=== PATIENT | female | born 1945 | race Hispanic/Latino ===

== ENCOUNTER 2018-09-01 10:03 | Emergency (ER) | payer MEDICARE ==
[~2018-09-01] VITALS: Ht 152.4 cm; Wt 69.9 kg
[~2018-09-01 10:03] MED LIST: ASA81 MG PO; Z.0.LOSARTAN POTASS5 PO; Z.0.NEXIUM40 MG PO; Z.0.SIMVASTATIN40 MG PO; Z.0.VITAMIN D50000 U PO
--- OUTSIDE RECORDS SUMMARY | 2018-09-01 10:07 | XMS REPORT | Summary of Care ---
Author Author [facility] [place] Organization [facility] [place] Address Unknown Phone Unavailable Encounter HQ Chitontr_bess(FIN) [id number] Date(s): 12/21/15 - 12/21/15 [facility] [place] [address] [phone] [phone] Discharge Disposition: Home or Self Care Attending Physician: Cosme Clarke MD Vital Signs No data available for this section Problem List No data available for this section Allergies, Adverse Reactions, Alerts Substance Reaction Severity Status NKDA Active Medications No data available for this section Results No data available for this section Immunizations No data available for this section Procedures No data available for this section Social History No data available for this section Assessment and Plan No data available for this section
--- OUTSIDE RECORDS SUMMARY | 2018-09-01 10:07 | XMS REPORT | Summary of Care ---
Author Organization Unknown Address Unknown Phone Unavailable Encounter HQ Encntr_alidiane(FIN) [id number] Date(s): 05/26/14 - 05/26/14 [facility] Outpatient Imaging - [address] [place] [address]- [facility] [phone] Discharge Disposition: Home Physician Attending: Julián Weinstein MD Vital Signs No data available for [...]
--- OUTSIDE RECORDS SUMMARY | 2018-09-01 10:07 | XMS REPORT | Summary of Care ---
Author Author [facility] - [place] Organization [facility] [place] Address Unknown Phone Unavailable Encounter HQ Chitontr_bess(FIN) [id number] Date(s): 04/10/16 - 04/10/16 [facility] Out[facility] - [place] [address] [address]- [phone] Discharge Disposition: Home or Self Care Attending [...]
--- OUTSIDE RECORDS SUMMARY | 2018-09-01 10:07 | XMS REPORT | Summary of Care ---
Author Author [facility] [place] Organization [facility] [place] Address Unknown Phone Unavailable Encounter HQ Encntr_alias(FIN) [id number] Date(s): 07/28/18 - 07/28/18 [facility] [place] [address] [phone] Discharge Disposition: Home or Self Care Attending Physician: Cosme Clarke MD Referring Physician: Cosme Clarke MD Vital Signs No data available for this section Problem List No data available for this section Allergies, Adverse Reactions, Alerts No Known Medication Allergies Medications No data available for this section Results No data available for this section Immunizations No data available for this section Procedures No data available for this section Social History No data available for this section Assessment and Plan No data available for this section
--- OUTSIDE RECORDS SUMMARY | 2018-09-01 10:07 | XMS REPORT | Summary of Care ---
Author Organization Unknown Address Unknown Phone Unavailable Encounter HQ Encntr_alias(FIN) [id number] Date(s): 08/14/14 - 08/14/14 [facility] Outpatient Imaging - [address] [place] [address]- [facility] [phone] Discharge Disposition: Home Physician Attending: Julián Weinstein [...]
--- OUTSIDE RECORDS SUMMARY | 2018-09-01 10:07 | XMS REPORT | Summary of Care ---
Author Organization Unknown Address Unknown Phone Unavailable Encounter HQ Encntr_alias(FIN) [id number] Date(s): 06/07/13 - 06/07/13 [facility] Outpatient Imaging - [address] [address]- [place] Discharge Disposition: Home Physician Attending: Julián Weinstein Reason for Visit V76.12 - SCREEN MAMMOGRA Problem List No data available for this section Allergies, Adverse Reactions, Alerts Substance Reaction Severity Status NKDA Active Medications No data available for this section Medications Administered During Your Visit No data available for this section Immunizations No data available for this section
--- OUTSIDE RECORDS SUMMARY | 2018-09-01 10:07 | XMS REPORT ---
Author [facility] Address Unknown Phone Unavailable Care Team Providers Care Rn Intern Name Role Phone Marta ALLEN Unavailable Unavailable Payers Payer Name Policy Type Policy Number Effective Date Expiration Date Problems This patient has no known problems. Allergies, Adverse Reactions, Alerts Allergy Name Allergy Type Status Severity Reaction(s) Onset Date Inactive Date Treating Clinician Comments No Known Allergies DA Active U 2015-07-31 00:00:00 Medications This patient has no known medications. Results Test Description Test Time Test Comments Text Results Atomic Results Result Comments [facility] 2017-11-12 12:25:00 RUN DATE: 11/12/17 [facility] PAGE 1 RUN TIME: 1225 Specimen Inquiry RUN USER: INTERFACE PATIENT: DANYELL BELTRAN LOC: NICK Srinivasan #: [id number] AGE/SX: 71/F ROOM: [facility] RE11/09/17REG DR: Jacky Ceja MD : 43 BED: A DIS: 11/11/17 STATUS: DIS IN TLOC: SPEC #: [id number] RECD: 11/11/17 STATUS: MARIELENA LARKIN #: [id number] RAUL: 11/10/17- SUBM DR: Glendy Antunez MD ENTERED: 11/11/17-1035 SP TYPE: STOMACH OTHR DR: Sohail Elizabeth MD, Abiel MDORDERED: GROSS COPIES TO: Sohail Elizabeth MD [address] [place] [address] [place] Cosme sheehan MD [address] [place] [address] Glendy Antunez MD [address] [place], [place] [id number] PROCEDURES: GROSS (11/12/17-1223) TISSUES: 1. DUODENUM, NOS - BX 2. ANTRAL BIOPSY - H-PYLORI 3. BODY BIOPSY OF STOMACH - COLD BX 4. GASTRIC ULCER - COLD POLYP 5. COLON, NOS - RANDOM COLD BX CLINICAL HISTORY COLLECTION DATE: 11/10/17 ABDOMINAL PAIN, NAUSEA, VOMITING POST-OP DIAGNOSIS: GASTRITIS, HIATAL HERNIA, GASTRIC POLYP, HEMORRHOIDS FINAL DIAGNOSIS Small intestine, duodenum, cold biopsy: SMALL INTESTINAL MUCOSA, NO PATHOLOGIC ALTERATIONS Stomach, antrum, cold biopsy: CHRONIC GASTRITIS WITH INTESTINAL METAPLASIA CONTROLLED GIEMSA STAIN NEGATIVE FOR HELICOBACTER ORGANISMS NEGATIVE FOR DYSPLASIA CONTINUED ON NEXT PAGE R UN DATE: 11/12/17 [facility] PAGE 2 RUN TIME: 1225 Specimen Inquiry RUN USER: INTERFACE SPEC #: [id number] PATIENT: DANYELL BELTRAN #[id number] (Continued) FINAL DIAGNOSIS (Continued) NEGATIVE FOR MALIGNANCY Stomach, body, cold biopsy: SEVERE CHRONIC GASTRITIS WITH INTESTINAL METAPLASIA CONTROLLED GIEMSA STAIN NEGATIVE FOR HELICOBACTER ORGANISMS NEGATIVE FOR DYSPLASIA NEGATIVE FOR MALIGNANCY Gastric polyp, cold biopsy: CONSISTENT WITH HYPERPLASTIC POLYP WITH CHRONIC INFLAMMATION CONTROLLED GIEMSA STAIN NEGATIVE FOR HELICOBACTER ORGANISMS NEGATIVE FOR DYSPLASIA NEGATIVE FOR MALIGNANCY Random colon, cold biopsy: COLONIC MUCOSA WITH EDEMATOUS CHANGES, FEW SCATTERED PIGMENT- LADEN MACROPHAGES IN THE LAMINA PROPRIA, AND FEW SCATTERED LYMPHOID AGGREGATES NEGATIVE FOR ACUTE COLITIS NEGATIVE FOR MICROSCOPIC COLITIS NEGATIVE FOR MALIGNANCY BETTY/sm D ([phone], ([phone] MACROSCOPIC The first specimen is received in formalin, labeled with the patient's name, identified as "duodenum cold bx", and consists of mendes biopsy tissue measuring 0.3 cm in aggregate, submitted as (1). The second specimen is received in formalin, labeled with the patient's name, identified as "antrum cold bx", and consists of mendes biopsy tissue measuring 0.35 cm in aggregate, submitted as (2) for H E and Giemsa stains. The third specimen is received in formalin, labeled with the patient's name, identified as "body of stomach cold bx", and consists of mendes biopsy tissue measuring 0.35 cm in aggregate, submitted as (3) for H E and Giemsa stains. The fourth specimen is received in formalin, labeled with the patient's name, identified as "gastric polyp cold bx", and consists of mendes biopsy tissue measuring 0.35 cm in aggregate, submitted as (4). The fifth specimen is received in formalin, labeled with the patient's name, identified as "random colon cold bx", and consists of mendes biopsy tissue measuring 0.35 cm in aggregate, submitted as (5). GROSS PERFORMED AT [facility] CONTINUED ON NEXT PAGE RUN DATE: 11/12/17 [facility] PAGE 3 RUN TIME: 1225 Specimen Inquiry RUN USER: INTERFACE SPEC #: [id number] PATIENT: DANYELL BELTRAN #[id number] (Continued) MACROSCOPIC (Continued) [facility] [address] [place] [phone] (p)[phone] MICROSCOPIC MICROSCOPIC PERFORMED AT [facility] All of the stains, including any controls performed, stain appropriately. [facility] [address] [place] [address] (p)[phone] PERFORMING SITE Diagnosis performed at: [facility], [place] [address] Signed SIGNATURE ON FILE Tete Marshall 11/12/[address] ABDOMEN/PELVIS [address] [address] Patient Name: DANYELL BELTRAN MR #: [id number] : 1945 Age/Sex: 70/F Req #: [id number] Adm Physician: Ordered by: STEPH ALLEN MD Report #: [id number] Location: ER Room/Bed: Procedure: [id number] CT/CT ABDOMEN/PELVIS W Exam Date: 11/23/16 Exam Time: 0345 REPORT STATUS: Signed EXAM: CT ABDOMEN/PELVIS W DATE: 11/23/2016 2:05 AM INDICATION: Abdominal pain COMPARISON: None TECHNIQUE: The abdomen and pelvis were scanned using a multidetector helical scanner. Coronal and sagittal reformations were obtained. Routine protocol performed. IV Contrast: 100 ml Isovue 370 FINDINGS: LOWER THORAX: Mild bibasilar atelectasis/scarring LIVER/BILIARY: No masses. No ductal dilatation. GA LLBLADDER/SPLEEN/PANCREAS: Cholecystectomy. Otherwise unremarkable ADRENALS: No nodules KIDNEYS: Symmetric perfusion. No enhancing masses. Mild bilateral hydroureteronephrosis likely related to distended bladder. GI TRACT: Small hiatal hernia. No evidence of obstruction or bowel wall thickening. Scattered diverticuli without acute inflammatory change. Normal appendix. VESSELS: Mild atherosclerotic changes PERITONEUM/RETROPERITONEUM: No free air or fluid LYMPH NODES: No lymphadenopathy REPRODUCTIVE ORGANS/BLADDER: Distended bladder. Status post hysterectomy SOFT TISSUES: Small fat-containing umbilical and infraumbilical hernias BONES: Bilateral L5 pars defects with grade 1 anterolisthesis of L5 on S1. IMPRESSION: No acute abnormality. Signed by: Dr Nikos Mueller MD on 11/23/2016 4:44 AM Dictated By: NIKOS MUELLER MD 3 Transcribed By: LEV on 11/23/16443 COPY TO: STEPH ALLEN MD
--- OUTSIDE RECORDS SUMMARY | 2018-09-01 10:07 | XMS REPORT | CCD ---
Author Author Auto Generated Organization [facility] Outpatient Imaging - [place] Address Unknown Phone Unavailable Care Team Providers Care Press Puller Name Role Phone Cosme Clarke CP Allergies, Adverse Reactions, Alerts Substance Reaction Status NKDA Active
--- OUTSIDE RECORDS SUMMARY | 2018-09-01 10:07 | XMS REPORT | Summary of Care ---
Author Organization Unknown Address Unknown Phone Unavailable Encounter HQ Johnyr_bess([facility]) [id number] Date(s): 06/09/13 - 06/09/13 [facility] Outpatient Imaging - [address] [address]- [place] Discharge Disposition: Home Physician Attending: Julián Weinstein Reason for Visit V82.81 - SCREEN - OSTEOP Problem List No data available for this section Allergies, Adverse Reactions, Alerts Substance Reaction Severity Status NKDA Active Medications No data available for this section Medications Administered During Your Visit No data available for this section Immunizations No data available for this section
--- OUTSIDE RECORDS SUMMARY | 2018-09-01 10:07 | XMS REPORT | Summary of Care ---
Author Author [facility] [place] Organization [facility] [place] Address Unknown Phone Unavailable Encounter HQ Encntr_alias(FIN) [id number] Date(s): 05/27/16 - 05/27/16 [facility] - [place] [address] [phone] Discharge Disposition: Home or Self Care Attending [...]
--- OUTSIDE RECORDS SUMMARY | 2018-09-01 10:07 | XMS REPORT | Continuity of Care Document ---
Author Author [employer] Organization [employer] Address Unknown Phone Unavailable Care Team Providers Care Prescription Clerk Lenses Name Role Phone [facility] [employer] Unavailable Unavailable Problems Problem Status Onset Date Classification Date Reported Comments Source M81.0 - AGE-RELATED OSTEOPOROSIS W/O C Active 12/19/2015 [facility] V82.81 - SCREEN - OSTEOP Active 06/07/2013 [facility] [place] Medications No Data Provided for This Section Allergies, Adverse Reactions, Alerts Substance Category Reaction Severity Reaction type Status Date Reported Comments Source No Known Medication Allergies Assertion Drug allergy [facility] [place] Immunizations No Data Provided for This Section Results No Data Provided for This Section Pathology Reports No Data Provided for This Section Diagnostic Reports Report Value Date Source Bone Density DXA Dual Energy MA BONE DENSITY ASSESSMENT: 07/28/2018 CLINICAL DATA: Post menopausal and clinical risk for osteoporosis. Age-Related Osteoporosis Without Current Pathological Fracture/M81.0 FINDINGS: Bone density evaluation was performed 07/28/2018 on the right femur neck using a Hologic unit. The BMD average for the exam is 0.709 g/cm2. The T-score is -1.30 and the Z-score is 0.60. This matches the World Health Organization's criteria for osteopenia and places the patient at a medium risk for fracture. An additional bone density evaluation was performed 07/28/2018 on the left femur neck using a Hologic unit. The BMD average for the exam is 0.673 g/cm2. The T- score is -1.60 and the Z-score is 0.30. This matches the World Health Organization's criteria for osteopenia and places the patient at a medium risk for fracture. An additional bone density evaluation was performed 07/28/2018 on the right hip using a Hologic unit. The BMD average for the exam is 0.808 g/cm2. The T-score is -1.10 and the Z-score is 0.60. This matches the World Health Organization's criteria for osteopenia and places the patient at a medium risk for fracture. An additional bone density evaluation was performed 07/28/2018 on the left hip using a Hologic unit. The BMD average for the exam is 0.784 g/cm2. The T-score is -1.30 and the Z-score is 0.50. This matches the World Health Organization's criteria for osteopenia and places the patient at a medium risk for fracture. An additional bone density evaluation was performed 07/28/2018 on the AP L1-L3 region of spine using a Hologic unit. The BMD average for the exam is 0.654 g/cm2. The T-score is -3.30 and the Z-score is -1.00. This matches the World Health Organization's criteria for osteoporosis and places the patient at a high risk for fracture. IMPRESSION: OSTEOPOROSIS Patient is at high risk for fracture. Patient consult w/primary care provider is recommended. This exam was interpreted at [id number] for ROBBIE Szymanski, SL 15. Anita Langston M.D. ms/penrad:07/29/2018 08:14:41 [employer] Iron Drain Pipe Layer(s): Damaris MARTINEZ(R)(M), [facility] 07/28/2018 [facility] [place] Breast Mammo Scrn SAM incl CAD MA BILATERAL DIGITAL SCREENING MAMMOGRAM WITH CAD: 07/28/2018 CLINICAL: Encounter For Screening Mammogram For Malignant Neoplasm Of Breast/Z12.31. Current study was evaluated with a Computer Aided Detection (CAD) system. COMPARISON:Comparison is made to exams dated: 04/10/2016 mammogram, 08/14/2014 mammogram, 06/07/2013 mammogram, and 01/19/2012 mammogram - [facility]. TECHNIQUE: Mammographic views were obtained using digital acquisition. Current study was also evaluated with a Computer Aided Detection (CAD) system. FINDINGS: The tissue of both breasts is almost entirely fat. There is a benign lymph node in the right breast. There also are benign vascular calcifications in both breasts. No significant masses, calcifications, or other findings are seen in either breast. There has been no significant interval change. IMPRESSION: BENIGN RECOMMENDATION:There is no mammographic evidence of malignancy. A 1 year screening mammogram is recommended.(07/29/2019) Professional services are provided by the [facility]. Dr. Deepa Hollins D.O. /penrad:07/28/2018 12:29:41 [employer] Iron Drain Pipe Layer(s): Geraldine Gómez RT(R)(M), [facility] letter sent: BI-RADS 1/2 Mammogram BI-RADS: 2 Benign 07/28/2018 [facility] [place] Shoulder series DX EXAMINATION: Right shoulder series HISTORY: M25.511 Pain in right shoulder; right acromioclavicular osteoarthritis FINDINGS: 2 to 3 views of the right shoulder are performed without comparison. There are no acute fractures or dislocations. The glenohumeral joint space is normal. There is mild acromioclavicular osteoarthritis. Note is made of a subacromial spur. IMPRESSION: 1. Mild right acromioclavicular osteoarthritis. 2. Right subacromial spur which may predispose to subacromial impingement in the correct clinical context. 05/27/2016 [facility] Szymanski Breast Mammo Scrn SAM incl CAD MA - BREAST MAMMO SCRN SAM INCL CAD MA BILATERAL DIGITAL SCREENING MAMMOGRAM WITH CAD: 04/10/2016 CLINICAL: Z12.31 Encounter For Screening Mammogram For Malignant Neoplasm Of Breast. Current study was evaluated with a Computer Aided Detection (CAD) system. Comparison is made to exams dated: 08/14/2014 mammogram, 06/07/2013 mammogram, 01/19/2012 mammogram and 05/29/2009 mammogram - [facility]. The tissue of both breasts is almost entirely fat. There are benign vascular calcifications in both breasts. There also is a benign lymph node in the right breast. No significant masses, calcifications, or other findings are seen in either breast. There has been no significant interval change. IMPRESSION: BENIGN There is no mammographic evidence of malignancy. A 1 year screening mammogram is recommended. Professional services are provided by the [facility] Division of Diagnostic Imaging. Juan A Ca M.D. /penrad:04/14/2016 10:16:37 Cast Iron Drain Pipe Layer: Damaris Alcantar RT(R)(M), [facility] This exam was dictated and interpreted by [id number] for CHRISTI Calderón 15. letter sent: Normal exam Mammogram BI-RADS: 2 Benign 04/10/2016 ROBBIE Szymanski Bone Density DXA Dual Energy MA - Bone Density DXA [employer] MA BONE DENSITY EVALUATION: 12/21/2015 CLINICAL DATA: Post menopausal. RISK FACTORS: Maternal history of osteoporosis. FINDINGS: Bone density evaluation was performed 12/21/2015 on the AP L1-L3 region of spine using a Hologic unit. The BMD average for the exam is 0.640 g/cm2. The T-score is -3.40 and the Z-score is -1.30. This matches the World Health Organization's criteria for osteoporosis and places the patient at a high risk for fracture. An additional bone density evaluation was performed 12/21/2015 on the right femur neck using a Hologic unit. The BMD average for the exam is 0.724 g/cm2. The T-score is -1.10 and the Z-score is 0.60. This matches the World Health Organization's criteria for osteopenia and places the patient at a medium risk for fracture. An additional bone density evaluation was performed 12/21/2015 on the right hip using a Hologic unit. The BMD average for the exam is 0.819 g/cm2. The T-score is -1.00 and the Z-score is 0.50. This matches the World Health Organization's criteria for normal bone density and places the patient within normal limits of fracture risk. An additional bone density evaluation was performed 12/21/2015 on the left femur neck using a Hologic unit. The BMD average for the exam is 0.681 g/cm2. The T- score is -1.50 and the Z-score is 0.20. This matches the World Health Organization's criteria for osteopenia and places the patient at a medium risk for fracture. An additional bone density evaluation was performed 12/21/2015 on the left hip using a Hologic unit. The BMD average for the exam is 0.796 g/cm2. The T-score is -1.20 and the Z-score is 0.40. This matches the World Health Organization's criteria for osteopenia and places the patient at a medium risk for fracture. IMPRESSION: OSTEOPOROSIS Patient is at high risk for fracture. Professional services are provided by the [facility]. This exam was dictated and interpreted by [id number] for CHRISTI Calderón 15. Juan A Ca M.D. cm/penrad:12/21/2015 16:01:08 Cast Iron Drain Pipe Layer: Damaris ELLISON)(M), [facility] 12/21/2015 HAILEY Szymanski Digital Mammo Screening Sam MA - DIGITAL MAMMO SCREENING SAM MA BILATERAL DIGITAL SCREENING MAMMOGRAM WITH CAD: 08/14/2014 CLINICAL: Routine. Current study was evaluated with a Computer Aided Detection (CAD) system. Comparison is made to exam dated: 05/29/2009 mammogram - [facility]. The tissue of both breasts is almost entirely fat. No significant masses, calcifications, or other findings are seen in either breast. There has been no significant interval change. IMPRESSION: NEGATIVE There is no mammographic evidence of malignancy. A 1 year screening mammogram is recommended. Dr. Rusty Dave M.D. [facility]/penrad:08/14/2014 15:26:34 Cast Iron Drain Pipe Layer: Damaris ELLISON)(M), [facility] This exam was dictated and interpreted by [id number] for Marshal. letter sent: Normal exam Mammogram BI-RADS: 1 Negative 08/14/2014 HAILEY Szymanski Spine cervical 2 or 3 view DX CERVICAL SPINE SERIES CLINICAL HISTORY: Neck pain. COMPARISON IMAGIN07/17/2009 radiography. FINDINGS: Three views of the cervical spine were obtained. Bones appear demineralized. Mild multilevel degenerative changes are present, including small marginal osteophytes, facet hypertrophy, and uncovertebral joint hypertrophy. Vertebral body heights and alignment are maintained. No obvious fracture or subluxation is identified. Prevertebral soft tissues are unremarkable. IMPRESSION: Mild multilevel degenerative changes. 05/26/2014 HAILEY Szymanski Bone Density-Dual Energy Absorptionmetry - Bone Density- Dual Energy Absorptionmetry BONE DENSITY EVALUATION: 06/09/2013 CLINICAL DATA: Clinical risk for osteoporosis. COMPARISON: 01/19/2012 AP L1-L4 region of spine using Lunar Dual Energy X-Ray Absorptiometry from [facility] with reported high fracture risk, BMD of 0.812g/cm2, T-score of -3.10, Z-score of -1.50 and 82.0% age-match bone mineralization. 01/19/2012 Right hip using Lunar Dual Energy X-Ray Absorptiometry from [facility] with reported normal fracture risk, BMD of 0.921g/cm2, T-score of -0.70, Z-score of 0.60 and 109.0% age-match bone mineralization. 01/19/2012 Left hip using Lunar Dual Energy X-Ray Absorptiometry from [facility] with reported normal fracture risk, BMD of 0.904g/cm2, T-score of -0.80, Z-score of 0.50 and 107.0% age-match bone mineralization. FINDINGS: Bone density evaluation was performed 06/09/2013 on the AP L1-L4 region of spine using Lunar Dual Energy X-Ray Absorptiometry. The BMD average for the exam is 0.810 g/cm2. The T-score is -3.10 and the Z-score is -1.60. These values indicate 81.0% for age-matched controls. Since the previous similar exam of 01/19/2012, there has been a -0.002 or -0.2% change in the BMD value which represents no significant interval change in bone density. This matches the World Health Organization's criteria for osteoporosis and places the patient at a high risk for fracture. An additional bone density evaluation was performed 06/09/2013 on the right femur neck using Lunar Dual Energy X-Ray Absorptiometry. The BMD average for the exam is 0.864 g/cm2. The T-score is -1.30 and the Z-score is 0.30. These values indicate 105.0% for age-matched controls. This matches the World Health Organization's criteria for osteopenia and places the patient at a medium risk for fracture. An additional bone density evaluation was performed 06/09/2013 on the right hip using Lunar Dual Energy X-Ray Absorptiometry. The BMD average for the exam is 0.902 g/cm2. The T-score is -0.80 and the Z-score is -0.50. These values indicate 107.0% for age-matched controls. Since the previous similar exam of 01/19/2012, there has been a -0.019 or -2.1% change in the BMD value which represents no significant interval change in bone density. This matches the World Health Organization's criteria for normal bone density and places the patient within normal limits of fracture risk. An additional bone density evaluation was performed 06/09/2013 on the left femur neck using Lunar Dual Energy X-Ray Absorptiometry. The BMD average for the exam is 0.785 g/cm2. The T-score is -1.80 and the Z-score is -0.30. These values indicate 95.0% for age-matched controls. This matches the World Health Organization's criteria for osteopenia and places the patient at a medium risk for fracture. An additional bone density evaluation was performed 06/09/2013 on the left hip using Lunar Dual Energy X-Ray Absorptiometry. The BMD average for the exam is 0.893 g/cm2. The T-score is -0.90 and the Z-score is 0.40. These values indicate 106.0% for age-matched controls. Since the previous similar exam of 01/19/2012, there has been a -0.011 or -1.2% change in the BMD value which represents no significant interval change in bone density. This matches the World Health Organization's criteria for normal bone density and places the patient within normal limits of fracture risk. IMPRESSION: OSTEOPOROSIS Patient is at high risk for fracture. Compared to BMD of prior exam, there has been no significant change in bone density. Dr. Deepa Hollins D.O. ht/penrad:06/09/2013 10:09:30 Cast Iron Drain Pipe Layer: Gabby Espinosa, [facility] 06/09/2013 ROBBIE Szymanski Digital Mammo Screening Sam MA - DIGITAL MAMMO SCREENING SAM MA BILATERAL DIGITAL SCREENING MAMMOGRAM WITH CAD: 06/07/2013 CLINICAL: Routine. Current study was evaluated with a Computer Aided Detection (CAD) system. Comparison is made to exams dated: 05/29/2009 mammogram and 01/19/2012 mammogram - [facility]. The tissue of both breasts is almost entirely fat. No significant masses, calcifications, or other findings are seen in either breast. There has been no significant interval change. IMPRESSION: NEGATIVE There is no mammographic evidence of malignancy. A screening mammogram in one year is recommended. Dr. Deepa Hollins D.O. ht/penrad:06/07/2013 15:11:01 Cast Iron Drain Pipe Layer: Ny Tian RT(R)(M), [facility] This exam was dictated and interpreted by [id number] for ROBBIE [place]. letter sent: Normal exam Mammogram BI-RADS: 1 Negative 06/07/2013 [facility] [place] Chest 2 views EXAM: Chest 2 views HISTORY: 401.9 Unspecified Essential Hypertension COMPARISON: 07/17/2009 FINDINGS: The cardiomediastinal silhouette is within normal limits. The pulmonary vasculature is normal. There is minimal atelectasis in the lower lungs. There is no consolidation, pleural effusion, or pneumothorax. No acute bony abnormalities are seen. IMPRESSION: 1. No acute cardiopulmonary abnormalities. Minimal atelectasis noted in the lower lungs. 08/11/2012 [facility] [place] Consultation Notes No Data Provided for This Section Discharge Summaries No Data Provided for This Section History and Physicals No Data Provided for This Section Vital Signs No Data Provided for This Section Encounters Location Location Details Encounter Type Encounter Number Reason For Visit Attending Provider ADM Date DC Date Status Source [facility] [place] [facility] [id number] Julián Weinstein 06/07/2013 06/08/2013 [facility] [place] [facility] [place] [facility] [id number] Julián Weinstein 06/09/2013 06/10/2013 [facility] [place] [facility] [place] [facility] [id number] Julián Weinstein 05/26/2014 05/27/2014 [facility] [place] [facility] [place] [facility] [id number] Julián Weinstein 08/14/2014 08/15/2014 [facility] [place] [facility] [place] [facility] [id number] Cosme Clarke 12/21/2015 12/22/2015 [facility] [place] [facility] [place] [facility] [id number] Cosme Clarke 04/10/2016 04/11/2016 [facility] [place] [facility] [place] [facility] [id number] Cosme Clarke 05/27/2016 05/28/2016 [facility] [place] [facility] [place] [facility] [id number] Cosme Clarke 07/28/2018 07/29/2018 [facility] [place] Procedures No Data Provided for This Section Assessment and Plan No Data Provided for This Section Plan of Care No Data Provided for This Section Social History Social History Date Source No data available for this section 07/29/2018 ROBBIE Szymanski Family History No Data Provided for This Section Advance Directives No Data Provided for This Section Functional Status No Data Provided for This Section
--- OUTSIDE RECORDS SUMMARY | 2018-09-01 10:07 | XMS REPORT | CCD ---
Author Author Auto Generated Organization [facility] [place] Address Unknown Phone Unavailable Care Team Providers Care Granite Installer Name Role Phone Julián Weinstein CP Allergies, Adverse Reactions, Alerts Substance Reaction Status NKDA Active
[2018-09-01] MEDS ORDERED: FAMOTIDINE 20 MG TAB PO ONE (11:00)
[2018-09-01] MEDS ORDERED: IBUPROFEN 400 MG TAB PO ONE ×2 (11:00→11:30)
[2018-09-01] MEDS ORDERED: ONDANSETRON HCL 4 MG ORAL DISINTEGRATING TAB PO ONE (11:00)
[2018-09-01 12:03] VITALS: BP 127/60
[2018-09-21] MEDS ORDERED: MICARDIS40 MG PO (16:20)
[2018-09-21] MEDS ORDERED: OMEPRAZOLE40 MG PO (16:20)
[2018-09-21] MEDS ORDERED: [UNRECOGNIZED DRUG - OTHER] PO (16:21)
== END 2018-09-01 12:05 | disposition home or self-care (01) ==
LOC: ER 10:03
DX: R11.2 Nausea with vomiting, unspecified (principal); K29.50 Unspecified chronic gastritis without bleeding
CPT/HCPCS: 99282; Q0162

== ENCOUNTER → 2018-09-22 | Day surgery (SDC) | payer MEDICARE ==
[2018-09-21 15:56] LABS: BASOPHILS # (AUTO) 0.1 (0.0-0.1); BASOPHILS % 0.7 % (0.0-1.0); EOSINOPHILS # (AUTO) 0.5 (0.0-0.4); EOSINOPHILS % 4.6 % (0.0-6.0); HEMATOCRIT 34.8 % (34.2-44.1); HEMOGLOBIN 11.3 g/dL (12.0-16.0); LYMPHOCYTES # (AUTO) 2.4 (1.0-3.2); LYMPHOCYTES % 24.6 % (18.0-39.1); MEAN CORPUSCULAR HEMOGLOBIN 29.5 pg (28-32); MEAN CORPUSCULAR HGB CONC 32.5 g/dL (31-35); MEAN CORPUSCULAR VOLUME 90.9 fL (81-99); MONOCYTES # (AUTO) 0.9 (0.2-0.8); MONOCYTES % 8.9 % (4.4-11.3); PLATELET COUNT 266 x10e3/uL (140-360); RED BLOOD COUNT 3.83 x10e6/uL (3.6-5.1)
[~2018-09-22] MED LIST changes: +EPHEDRINE SULFATE INJ 50 MG/10 ML SYR ONE; +FENTANYL CITRATE/PF 100MCG/2 ML INJ ONE; +GLUCAGON FOR INJ 1 MG VIAL ONE; +HYOSCYAMINE 0.125 MG TAB ONE; +MICARDIS40 MG PO; +MIDAZOLAM HCL 2 MG/2 ML VIAL ONE; +OMEPRAZOLE40 MG PO; +PROPOFOL IV EMULSION 10 MG/ML 50 ML VIAL ONE; +[UNRECOGNIZED DRUG - OTHER] PO
--- OUTSIDE RECORDS SUMMARY | 2018-09-22 06:12 | XMS REPORT | Continuity of Care Document ---
Author Author [employer] [facility] Organization [employer] Address Unknown Phone Unavailable Care Team Providers Care Communications Planner Name Role Phone [facility] [employer] Information [employer] Unavailable Unavailable Problems Problem Status Onset Date Classification Date Reported Comments Source M81.0 - AGE-RELATED OSTEOPOROSIS W/O C Active 12/19/2015 [facility] [place] V82.81 - SCREEN - OSTEOP Active 06/07/2013 [facility] [place] Medications No Data Provided for This Section Allergies, Adverse Reactions, Alerts Substance Category Reaction Severity Reaction type Status Date Reported Comments Source No Known Medication Allergies Assertion Drug allergy [facility] [place] Immunizations No Data Provided for This Section [...] is recommended. This exam was interpreted at [id number] for ROBBIE Szymanski, SL 15. Anita Langston M.D. ms/penrad:07/29/2018 08:14:41 Pot Reliner(s): Damaris MARTINEZ(R)(M), [facility] 07/28/2018 [facility] [place] Breast Mammo Scrn SAM incl CAD MA BILATERAL DIGITAL SCREENING MAMMOGRAM WITH CAD: 07/28/2018 CLINICAL: Encounter For Screening Mammogram For Malignant Neoplasm Of Breast/Z12.31. Current study was evaluated with a Computer Aided Detection (CAD) system. COMPARISON:Comparison is made to exams dated: 04/10/2016 mammogram, 08/14/2014 mammogram, 06/07/2013 mammogram, and 01/19/2012 mammogram - [facility]. TECHNIQUE: Mammographic views were obtained using digital [...] Imaging. Dr. Deepa Hollins D.O. /penrad:07/28/2018 12:29:41 Pot Reliner(s): Geraldine Gómez RT(R)(M), [facility] letter sent: BI-RADS 1/2 Mammogram BI-RADS: 2 [...] mammogram, 01/19/2012 mammogram and 05/29/2009 mammogram - [facility]. The tissue of both breasts is almost [...] Professional services are provided by the [facility] Division of Diagnostic Imaging. Juan A Ca M.D. /penrad:04/14/2016 10:16:37 Pot Reliner: Damaris Alcantar RT(R)(M), [facility] This exam was dictated and interpreted by [id number] for CHRISTI Calderón 15. letter sent: Normal [...] This exam was dictated and interpreted by [id number] for CHRISTI Calderón 15. Juan A Ca M.D. cm/penrad:12/21/2015 16:01:08 Pot Reliner: Damaris ELLISON)(M), [facility] 12/21/2015 HAILEY Szymanski Digital Mammo Screening Sam MA - DIGITAL MAMMO SCREENING SAM MA BILATERAL DIGITAL SCREENING MAMMOGRAM WITH CAD: 08/14/2014 CLINICAL: Routine. Current study was evaluated with a Computer Aided Detection (CAD) system. Comparison is made to exam dated: 05/29/2009 mammogram - [facility]. The tissue of both breasts is almost entirely fat. No significant masses, calcifications, or other findings are seen in either breast. There has been no significant interval change. IMPRESSION: NEGATIVE There is no mammographic evidence of malignancy. A 1 year screening mammogram is recommended. Dr. Rusty Dave M.D. [facility]/penrad:08/14/2014 15:26:34 Pot Reliner: Damaris ELLISON)(M), [facility] This exam was dictated and interpreted by [id number] for Marshal. letter sent: Normal exam Mammogram [...] using [employer] X-Ray Absorptiometry from [facility] with reported high fracture risk, BMD of 0.812g/cm2, T-score of -3.10, Z-score of -1.50 and 82.0% age-match bone mineralization. 01/19/2012 Right hip using [employer] X-Ray Absorptiometry from [facility] with reported normal fracture risk, BMD of 0.921g/cm2, T-score of -0.70, Z-score of 0.60 and 109.0% age-match bone mineralization. 01/19/2012 Left hip using [employer] X-Ray Absorptiometry from [facility] with reported normal fracture risk, BMD of [...] density. Dr. Deepa Hollins D.O. ht/penrad:06/09/2013 10:09:30 Pot Reliner: Gabby Espinosa, [facility] 06/09/2013 ROBBIE Szymanski Digital Mammo Screening Sam MA - DIGITAL MAMMO SCREENING SAM MA BILATERAL DIGITAL SCREENING MAMMOGRAM WITH CAD: 06/07/2013 CLINICAL: Routine. Current study was evaluated with a Computer Aided Detection (CAD) system. Comparison is made to exams dated: 05/29/2009 mammogram and 01/19/2012 mammogram - [facility]. The tissue of both breasts is almost entirely fat. No significant masses, calcifications, or other findings are seen in either breast. There has been no significant interval change. IMPRESSION: NEGATIVE There is no mammographic evidence of malignancy. A screening mammogram in one year is recommended. Dr. Deepa Hollins D.O. ht/penrad:06/07/2013 15:11:01 Pot Reliner: Ny Tian RT(R)(M), [facility] This exam was dictated and interpreted by [id number] for ROBBIE Pooleby. letter sent: Normal exam Mammogram BI-RADS: 1 Negative 06/07/2013 [facility] [place] Chest 2 views EXAM: Chest 2 views [...] noted in the lower lungs. 08/11/2012 [facility] [place] Consultation Notes No Data Provided for This Section Discharge Summaries No Data Provided for This Section History and Physicals No Data Provided for This Section Vital Signs No Data Provided for This Section Encounters Location Location Details Encounter Type Encounter Number Reason For Visit Attending Provider ADM Date DC Date Status Source [facility] [place] [facility] [id number] Julián Weinstein 06/07/2013 06/08/[address] [facility] [place] [facility] [place] [facility] [id number] Julián Weinstein 06/09/2013 06/10/[address] [place] [facility] [place] [facility] [id number] Julián Weinstein 05/26/2014 05/27/[address] [facility] [place] [facility] [place] [facility] [id number] Julián Weinstein 08/14/2014 08/15/[address] [place] [facility] [place] [facility] [id number] Cosme Clarke 12/21/2015 12/22/[address] [facility] [place] [facility] [place] [facility] [id number] Cosme Clarke 04/10/2016 04/11/[address] [place] [facility] [place] [facility] [id number] Cosme Clarke 05/27/2016 05/28/[address] [facility] [place] [facility] [place] [facility] [id number] Cosme Clarke 07/28/2018 07/29/2018 [facility] [place] Procedures No Data Provided for This Section [...]
[2018-09-22 09:40] VITALS: BP 127/69
--- NOTE | 2018-09-22 12:08 | Operative Report ---
DATE OF PROCEDURE: 09/22/2018 SURGEON: Kali Berumen MD PROCEDURES: Esophagogastroduodenoscopy with biopsies and colonoscopy with polypectomy. INDICATIONS FOR EGD: Heartburn, bloating, nausea, and vomiting. INDICATIONS FOR COLONOSCOPY: History of intermittent diarrhea, crampy lower abdominal pain. MEDICATIONS: The patient was done under MAC, please see anesthesiologist's note. PROCEDURE IN DETAIL: With the patient in left lateral decubitus position, flexible fiberoptic Olympus gastroscope was introduced into the esophagus under direct visualization without any difficulty. There were some patchy erythema noted in distal esophagus. The scope was then advanced with ease into the stomach. Mucosa overlying the antrum and the body revealed some patchy intense erythema and [id number] edema and biopsies were obtained, sent to stain for H pylori. The pylorus was of normal contour and shape, it was intubated with ease and the scope was advanced all the way to the second portion of the duodenum. Biopsies were obtained from the second portion and duodenal bulb to rule out sprue. The scope was then withdrawn back into the stomach and retroflexed. Mucosa overlying the fundus and cardia appeared to be within normal limits. The scope was then straightened out, it was subsequently withdrawn. The patient tolerated the procedure well. IMPRESSION: 1. Distal esophagitis, mild. 2. Gastritis, biopsied. Biopsies sent to stain for Helicobacter pylori. 3. Rule out sprue. PLAN: Follow up histology. Initiate Protonix 40 mg one p.o. q.a.m. a.c. PROCEDURE IN DETAIL: The patient was then turned around and after adequate lubrication of the anal canal, flexible fiberoptic Olympus colonoscope was inserted into the rectum with ease and advanced all the way to the cecum. The scope was then withdrawn slowly. Mucosa overlying the cecum and ascending colon appeared to be within normal limits. Two polyps were hot biopsied from the transverse colon. There was some patchy mild inflammatory changes noted in the left colon. Two polyps were hot biopsied from the descending colon. Diverticular disease was noted to involve the distal descending and the sigmoid colon. The scope was then retroflexed into the distal rectum and small internal hemorrhoids were noted, none of which was actively bleeding. The scope was then straightened out, it was subsequently withdrawn. The patient tolerated the procedure well. IMPRESSION: 1. Transverse colon polyps x2, hot biopsied. 2. Mild patchy left-sided colitis. 3. Descending colon polyps x2, hot biopsied. 4. Diverticulosis. 5. Internal hemorrhoids, none actively bleeding. PLAN: Follow up histology. Initiate Bentyl 10 mg one p.o. t.i.d. Florastor one p.o. b.i.d. The patient might benefit from a followup colonoscopy in 5 years. Kali Berumen MD [facility] [place]/[facility] /[id number] cc: Cosme Clarke MD
== END | disposition home or self-care (01) ==
LOC: OR 06:06
PROVIDERS: ATTEND Internal Medicine Gastroenterology
DX: K59.00 Constipation, unspecified (principal); D12.3 Benign neoplasm of transverse colon; D12.4 Benign neoplasm of descending colon; K29.70 Gastritis, unspecified, without bleeding; K51.50 Left sided colitis without complications; K20.9 Esophagitis, unspecified; K21.9 Gastro-esophageal reflux disease without esophagitis; K57.30 Diverticulosis of large intestine without perforation or abscess without bleeding; K64.8 Other hemorrhoids; I10 Essential (primary) hypertension; M19.90 Unspecified osteoarthritis, unspecified site; R00.1 Bradycardia, unspecified; F32.9 Major depressive disorder, single episode, unspecified; Z01.810 Encounter for preprocedural cardiovascular examination; Z01.812 Encounter for preprocedural laboratory examination; Z79.82 Long term (current) use of aspirin
CPT/HCPCS: 36415; 43239; 45384; 85025; 93005; J1610; J2250; J2704; J3010; 45378; 45380